=== PATIENT | female | born 1960 | race Two or more races ===

== ENCOUNTER 2021-03-07 23:51 | Outpatient (CLI) | payer OTHER | END 2021-03-07 23:52 | disposition home or self-care (01) | LOC: PPH VACUNA 23:51 | DX: Z23 Encounter for immunization (principal) ==

== ENCOUNTER 2021-03-28 09:10 | Outpatient (CLI) | payer OTHER | END 2021-03-28 09:11 | disposition home or self-care (01) | LOC: PPH VACUNA 09:10 | DX: Z23 Encounter for immunization (principal) ==

== ENCOUNTER 2021-11-06 08:00 | Outpatient (CLI) | payer OTHER | END 2021-11-06 08:30 | disposition home or self-care (01) | LOC: PPH VACUNA 08:00 | PROVIDERS: ATTEND Emergency Medicine Pediatric Emergency Medicine | DX: Z23 Encounter for immunization (principal) ==